=== PATIENT | male | born 1950 | race Caucasian/White ===

== ENCOUNTER → 2020-03-28 | Outpatient (CLI) | payer OTHER ==
[~2020-03-28] VITALS: Ht 167.6 cm; Wt 83.9 kg
[2020-03-28 16:13] LABS: BASOPHIL % 0.4 % (0-2); PLATELET COUNT 304 x10^3mcL (130-400)
[2020-03-28 16:26] LABS: ALKALINE PHOSPHATASE 185 U/L (46-116); ALT/SGPT 22 U/L (16-63); AST/SGOT 10 U/L (15-37); BILIRUBIN TOTAL 0.4 mg/dL (0.20-1.00); CALCIUM 8.2 mg/dL (8.5-10.1); CARBON DIOXIDE 19.3 mmol/L (21-32); CHLORIDE SERUM 101 mmol/L (98-107); GLUCOSE SERUM 321 mg/dL (74-106); POTASSIUM SERUM 4.1 mmol/L (3.5-5.1); SODIUM SERUM 134 mmol/L (136-145); TOTAL PROTEIN, SERUM 7.4 g/dL (6.4-8.2)
[2020-03-28 16:31] LABS: ALBUMIN 3.1 g/dL (3.4-5.0)
[2020-03-28 16:33] LABS: CREATININE SERUM 5.5 mg/dL (0.7-1.3)
--- NOTE | 2020-03-29 10:45 | NUR ---
ABNORMAL EKG AND LAB RESULTS WERE FAXED TO DR. MARCELINA DIOP'S OFFICE AND SENT TO OR FOR ANESTHESIOLOGIST TO REVIEW. PER DR. ALONSO, ANESTHESIOLOGIST, PATIENT NEEDS CARDIAC CLEARANCE BEFORE PROCEDURE. FELICITY, THE PATIENT'S DAUGHTER, WAS CALLED AND NOTIFIED OF DR. ALONSO'S REQUEST. ALSO, T/C DR. DIOP'S OFFICE TO NOTIFY OF 'S REQUEST. HIDA, THE STAFF AT THIS OFFICE ANSWERED THE PHONE CONFIRMING THAT THE RESULTS WERE RECEIVED AND THE CASE IS CANCELED.
== END | disposition home or self-care (01) ==
LOC: LB 10:00 → OR 03-31 11:30 → EDSTATUS 03-31 11:30
PROVIDERS: ATTEND Surgery
DX: N18.9 Chronic kidney disease, unspecified (principal)

== ENCOUNTER 2020-07-21 10:29 | Day surgery (SDC) | payer OTHER ==
[2020-07-19 15:46] LABS: BASOPHIL % 0.9 % (0.2-1.5); PLATELET COUNT 281 x10^3mcL (152-348); RED CELL DISTRIBUTION WIDTH 13.1 % (12.1-16.2)
[2020-07-19 16:11] LABS: ALKALINE PHOSPHATASE 192 U/L (46-116); ALT/SGPT 36 U/L (16-63); AST/SGOT 9 U/L (15-37); BILIRUBIN TOTAL 0.31 mg/dL (0.20-1.00); CALCIUM 8.4 mg/dL (8.5-10.1); CARBON DIOXIDE 30.7 mmol/L (21-32); CHLORIDE SERUM 96 mmol/L (98-107); GLUCOSE SERUM 382 mg/dL (74-106); SODIUM SERUM 132 mmol/L (136-145); TOTAL PROTEIN, SERUM 7.1 g/dL (6.4-8.2)
[2020-07-19 16:16] LABS: ALBUMIN 2.9 g/dL (3.4-5.0)
[2020-07-19 16:18] LABS: CREATININE SERUM 4.7 mg/dL (0.7-1.3)
[~2020-07-21] VITALS: Ht 167.6 cm; Wt 83.9 kg
[2020-07-21 10:39] VITALS: BP 137/68
[2020-07-21 11:15] LABS: ALKALINE PHOSPHATASE 207 U/L (46-116); ALT/SGPT 22 U/L (16-63); AST/SGOT 8 U/L (15-37); BILIRUBIN TOTAL 0.42 mg/dL (0.20-1.00); CHLORIDE SERUM 97 mmol/L (98-107); GLUCOSE SERUM 228 mg/dL (74-106); POTASSIUM SERUM 3.2 mmol/L (3.5-5.1); SODIUM SERUM 136 mmol/L (136-145)
[2020-07-21 11:17] LABS: ALBUMIN 3.3 g/dL (3.4-5.0); CREATININE SERUM 4.3 mg/dL (0.7-1.3)
[2020-07-21 17:20] VITALS: BP 141/65
== END 2020-07-21 16:55 | disposition home or self-care (01) ==
LOC: DS 10:29 → OR 10:30 → DS 10:30
PROVIDERS: ATTEND Surgery
DX: E11.22 Type 2 diabetes mellitus with diabetic chronic kidney disease (principal); I12.0 Hypertensive chronic kidney disease with stage 5 chronic kidney disease or end stage renal disease; N18.6 End stage renal disease; D64.9 Anemia, unspecified; E78.5 Hyperlipidemia, unspecified; Z99.2 Dependence on renal dialysis; Z98.52 Vasectomy status; Z98.890 Other specified postprocedural states
CPT/HCPCS: J0690; J1644; J2001; J2250; J3010